=== PATIENT | female | born 1970 | race Caucasian/White ===

== ENCOUNTER → 2017-05-05 | Outpatient (CLI) | payer BC ==
[2015-12-06 08:59] VITALS: BP 123/63
--- NOTE | 2017-05-05 11:43 | RAD ---
Examination: Chest, PA and lateral views History: SOB Comparison reference: None Findings: Normal appearance of heart, lungs, mediastinum and pleural spaces. Impression: Chest within normal limits. Reported By:
== END ==
LOC: RAD 10:53
PROVIDERS: ATTEND Nurse Practitioner Family
DX: R06.02 Shortness of breath (principal)
CPT/HCPCS: 71020